=== PATIENT | male | born 1995 | race Hispanic/Latino ===

== ENCOUNTER 2017-04-27 14:12 | Emergency (ER) | payer SELFPAY ==
[2017-04-27 14:47] LABS: Absolute Lymphocytes (CBC) 1.5 K/uL (0.7-4.9); Absolute Monocytes 0.4 K/uL (0.1-1.3); Absolute Neutrophil 3.7 K/uL (1.8-8.0); Basophils % 0.7 % (0-1.3); Eosinophils % 0.4 % (0-4.4); Hematocrit 44.5 % (39.6-49.0); Lymphocytes % 27.2 % (15.3-44.8); MCH 30.5 pg (27.0-35.0); MCV 88.7 fL (80-100); MPV 9.1 fL (7.6-11.3); Monocytes % 6.7 % (3.3-12.3); RBC Red Blood Cell Count 5.02 M/uL (4.33-5.43)
[2017-04-27 14:59] LABS: Potassium 3.6 mEq/L (3.6-5.0)
--- NOTE | 2017-04-27 15:34 | ER ---
Nurse's Notes [facility] Name: Benedicto Villarreal Age: 21 yrs Sex: Male : 1995 Arrival Date: 04/27/2017 Time: 14:15 Bed 8 Private MD: Diagnosis: Epilepsy and recurrent seizures Presentation: 04/27 14:15 Presenting complaint: EMS states: His co-worker witnessed him having a seizure, last jl7 approx 1-2 minutes. He is A\T\Ox3, wasn't really postictal. Transition of care: patient was not received from another setting of care. Onset of symptoms was April 27, 2017. Care prior to arrival: Medication(s) given: Normal saline infusion, 500 mL, IV initiated. 18 GA, in the right antecubital area. 14:15 Method Of Arrival: EMS: [facility] jl7 14:15 Acuity: JOE 3 jl7 Triage Assessment: 14:32 General: Appears in no apparent distress. uncomfortable, Behavior is calm, cooperative, jl7 appropriate for age. Pain: Complains of pain in headache Pain does not radiate. Pain currently is 7 out of 10 on a pain scale. Quality of pain is described as throbbing, Pain began 30 min ago. Is continuous. EENT: No signs and/or symptoms were reported regarding the EENT system. Neuro: Level of Consciousness is awake, alert, obeys commands, Oriented to person, place, time, situation, Moves all extremities. Speech is normal, Facial symmetry appears normal, Pupils are PERRLA. Cardiovascular: Heart tones S1 S2 present Patient's skin is warm and dry. Respiratory: Airway is patent Respiratory effort is even, unlabored, Respiratory pattern is regular, symmetrical, Breath sounds are clear bilaterally. GI: Abdomen is flat, non-distended, Reports nausea, Patient currently denies diarrhea, vomiting. : No signs and/or symptoms were reported regarding the genitourinary system. Derm: Skin is pink, warm \T\ dry. Injury Description: Abrasion sustained to posterior aspect of right shoulder and right elbow was sustained. Historical: - Allergies: 14:32 No Known Allergies; jl7 - Home Meds: 15:05 Keppra 500 mg Oral tab 1 tab 2 times per day [Active]; jl7 - PMHx: 14:32 Seizures; Brain Tumor; jl7 - PSHx: 14:32 Removal of brain tumor; jl7 - Immunization history:: Adult Immunizations not up to date. - Social history:: Smoking status: Patient/guardian denies using tobacco. Screenin:30 Abuse screen: Denies threats or abuse. Denies injuries from another. Nutritional jl7 screening: No deficits noted. Tuberculosis screening: No symptoms or risk factors identified. Fall Risk Secondary diagnosis (15 points) seizures, IV access (20 points). Total Fuentes Fall Scale indicates Low Risk Score (25-44 pts). Fall prevention measures have been instituted. Side Rails Up X 2 Placed close to Nursing Station As available Patient and Family Educated on Fall Prevention Program and strategies. Assessment: 14:51 General: See triage assessment. jl7 15:30 Reassessment: No changes from previously documented assessment. Patient and/or family jl7 updated on plan of care and expected duration. Pain level reassessed. Patient is alert, oriented x 3, equal unlabored respirations, skin warm/dry/pink. Vital Signs: 14:32 BP 142 / 79; Pulse 92; Resp 16; Temp 98.7; Pulse Ox 96% ; Weight 79.38 kg; Height 5 ft. jl7 8 in. (172.72 cm); Pain 7/10; 15:00 BP 125 / 68; Pulse 93; Resp 16 S; Pulse Ox 97% on R/A; jl7 15:30 BP 123 / 74; Pulse 83; Resp 16 S; Pulse Ox 98% on R/A; jl7 14:32 Body Mass Index 26.61 (79.38 kg, 172.72 cm) jl7 [place] Coma Score: 14:32 Eye Response: spontaneous(4). Verbal Response: oriented(5). Motor Response: obeys jl7 commands(6). Total: 15. ED Course: 14:15 Patient arrived in ED. jl7 14:17 Triage completed. jl7 14:20 Alen Ordonez MD is Attending Physician. kdr 14:25 [facility] Hidalgo [facility]C [facility]. kb 14:32 Arm band placed on right wrist. jl7 14:35 Patient has correct armband on for positive identification. Placed in gown. Bed in low jl7 position. Call light in reach. Side rails up X2. Seizure precautions initiated. furnace reliner on. Pulse ox on. NIBP on. 15:04 Maged Clifton, RN is Primary Nurse. jl7 16:10 No provider procedures requiring assistance completed. IV discontinued, intact, jl7 bleeding controlled, No redness/swelling at site. Pressure dressing applied. Administered Medications: No medications were administered Outcome: 15:33 Discharge ordered by . suellen 16:00 Discharged to home ambulatory. jl7 16:00 Condition: stable 16:00 Discharge instructions given to patient, Instructed on discharge instructions, follow up and referral plans. lengthy discussion on the need to take his anti-seizure medication. Pt verbalized understanding. Demonstrated understanding of instructions, follow-up care. 16:12 Patient left the ED. jl7 Signatures: Susana Hidalgo, PROPAGATION WORKER-C PROPAGATION WORKER-Alen Waters MD MD kdr Leal, Jahala, RN RN jl7
--- NOTE | 2017-04-27 15:34 | EDPHYS ---
Physician Documentation [facility] Name: Benedicto Villarreal Age: 21 yrs Sex: Male : 1995 Arrival Date: 04/27/2017 Time: 14:15 Bed 8 Private MD: ED Physician Alen Ordonez HPI: 04/27 14:38 This 21 yrs old Male presents to ER via EMS with complaints of Probable Seizure. kb 14:38 The patient presents after having a single isolated seizure. Character of seizure(s): kb Loss of consciousness: the patient experienced loss of consciousness, Motor activity: generalized, shaking all over, Incontinence: none. Seizure onset: just prior to arrival. Context: the seizure(s) was witnessed, by co-worker(s), Contributing factors: missed recent doses of medications. Seizure Hx: Original onset: since childhood,\E\. Associated injury: Right upper extremity: posterior aspect of right shoulder and right elbow, abrasion. Current symptoms: Currently, the patient is not experiencing any symptoms, the patient feels back to baseline, no decreased level of consciousness, no confusion, no dysphasia, no headache, no paralysis, no visual changes. The patient has not experienced similar symptoms in the past. The patient has not recently seen a physician. Pt takes an unknown seizure medication that is sent to him from [place] by his mom. States he hasn't taken it this week. Has a seizure at work, last seizure was one year ago. This seizure feels the same as ones he has had in the past. . Historical: - Allergies: 14:32 No Known Allergies; jl7 - Home Meds: 15:05 Keppra 500 mg Oral tab 1 tab 2 times per day [Active]; jl7 - PMHx: 14:32 Seizures; Brain Tumor; jl7 - PSHx: 14:32 Removal of brain tumor; jl7 - Immunization history:: Adult Immunizations not up to date. - Social history:: Smoking status: Patient/guardian denies using tobacco. ROS: 14:38 Constitutional: Negative for fever, chills, and weight loss, ENT: Negative for injury, kb pain, and discharge, Neck: Negative for injury, pain, and swelling, Cardiovascular: Negative for chest pain, palpitations, and edema, Respiratory: Negative for shortness of breath, cough, wheezing, and pleuritic chest pain, Abdomen/GI: Negative for abdominal pain, nausea, vomiting, diarrhea, and constipation, MS/Extremity: Negative for injury and deformity. 14:38 Skin: Positive for abrasion(s), of the right elbow and posterior aspect of right shoulder. 14:38 Neuro: Positive for headache, seizure activity. Exam: 14:43 Constitutional: This is a well developed, well nourished patient who is awake, alert, kb and in no acute distress. Head/Face: Normocephalic, atraumatic. Eyes: Pupils equal round and reactive to light, extra-ocular motions intact. Lids and lashes normal. Conjunctiva and sclera are non-icteric and not injected. Cornea within normal limits. Periorbital areas with no swelling, redness, or edema. ENT: Nares patent. No nasal discharge, no septal abnormalities noted. Tympanic membranes are normal and external auditory canals are clear. Oropharynx with no redness, swelling, or masses, exudates, or evidence of obstruction, uvula midline. Mucous membranes moist. Neck: Trachea midline, no thyromegaly or masses palpated, and no cervical lymphadenopathy. Supple, full range of motion without nuchal rigidity, or vertebral point tenderness. No Meningismus. Chest/axilla: Normal chest wall appearance and motion. Nontender with no deformity. No lesions are appreciated. Cardiovascular: Regular rate and rhythm with a normal S1 and S2. No gallops, murmurs, or rubs. Normal PMI, no JVD. No pulse deficits. Respiratory: Lungs have equal breath sounds bilaterally, clear to auscultation and percussion. No rales, rhonchi or wheezes noted. No increased work of breathing, no retractions or nasal flaring. Abdomen/GI: Soft, non-tender, with normal bowel sounds. No distension or tympany. No guarding or rebound. No evidence of tenderness throughout. Skin: Warm, dry with normal turgor. Normal color with no rashes, no lesions, and no evidence of cellulitis. MS/ Extremity: Pulses equal, no cyanosis. Neurovascular intact. Full, normal range of motion. Neuro: Awake and alert, GCS 15, oriented to person, place, time, and situation. Cranial nerves II-XII grossly intact. Motor strength 5/5 in all extremities. Sensory grossly intact. Cerebellar exam normal. Normal gait. Vital Signs: 14:32 BP 142 / 79; Pulse 92; Resp 16; Temp 98.7; Pulse Ox 96% ; Weight 79.38 kg; Height 5 ft. jl7 8 in. (172.72 cm); Pain 7/10; 15:00 BP 125 / 68; Pulse 93; Resp 16 S; Pulse Ox 97% on R/A; jl7 15:30 BP 123 / 74; Pulse 83; Resp 16 S; Pulse Ox 98% on R/A; jl7 14:32 Body Mass Index 26.61 (79.38 kg, 172.72 cm) jl7 [place] Coma Score: 14:32 Eye Response: spontaneous(4). Verbal Response: oriented(5). Motor Response: obeys jl7 commands(6). Total: 15. MDM: 14:20 Patient medically screened. kdr 14:43 Data reviewed: vital signs, nurses notes. Data interpreted: Pulse oximetry: on room air kb is 100 %. Interpretation: normal. 15:06 ED course: Bottle of seizure medication brought to ER. Pt is supposed to take Keppra. kb 15:09 Counseling: I had a detailed discussion with the patient and/or guardian regarding: the kb historical points, exam findings, and any diagnostic results supporting the discharge/admit diagnosis, lab results, the need for outpatient follow up, a neurologist, to return to the emergency department if symptoms worsen or persist or if there are any questions or concerns that arise at home. 04/27 14:25 Order name: CBC with Diff kb 04/27 14:25 Order name: Basic Metabolic Panel kb 04/27 15:00 Order name: Basic Metabolic Panel; Complete Time: 15:01 EDMS 04/27 15:08 Order name: CBC with Automated Diff; Complete Time: 15:09 EDMS Administered Medications: No medications were administered Disposition: 17:30 Co-signature as Attending Physician, Alen Ordonez MD I agree with the assessment and kdr plan of care. Disposition: 04/27/17 15:33 Discharged to Home. Impression: Epilepsy and recurrent seizures. - Condition is Stable. - Discharge Instructions: Seizure, Adult, [id number]. - Medication Reconciliation Form, Thank You Letter, Antibiotic Education, Prescription Opioid Use form. - Follow up: Emergency Department; When: As needed; Reason: Worsening of condition. Follow up: Private Physician; When: 2 - 3 days; Reason: Recheck today's complaints, Continuance of care, Re-evaluation by your physician. Signatures: Dispatcher [employer] Susana Garcia, VIRGIE MOLINA-Alen Waters MD MD kdr Leal, Jahala, RN RN jl7
== END 2017-04-27 16:12 | disposition home or self-care (01) ==
LOC: ER 14:12
DX: G40.802 Other epilepsy, not intractable, without status epilepticus (principal)
CPT/HCPCS: 36415; 80048; 85025; 99284